=== PATIENT | female | born 1960 | race Caucasian/White ===

== ENCOUNTER 2023-02-08 06:28 | Day surgery (SDC) | payer OTHER ==
[~2023-02-08] VITALS: Ht 147.3 cm; Wt 75.7 kg
[~2023-02-08 06:28] MED LIST: ATOR1TAB19 PO; LOSA25TA13 PO; PROPARACAINE 0.5% OPHTH SOL 15ML OS ONE
[2023-02-08] MEDS ORDERED: MIDAZOLAM INJ 2MG/2ML VIAL As Ordered ONE (06:55)
[2023-02-08] MEDS ORDERED: fentaNYL 100 MCG/2 ML INJECTION As Ordered ONE (06:55)
[2023-02-08] MEDS ORDERED: CEFUROXIME 1MG/0.1ML INTRACAMERAL INJ As Ordered ONE (07:01)
[2023-02-08] MEDS ORDERED: LIDOCAINE 1% SDV 5ML VIAL As Ordered ONE (07:01)
[2023-02-08] MEDS ORDERED: BSS IRR 500ML/OMIDRIA 4ML IRR BAG (OR ONLY) As Ordered ONE (07:01)
[2023-02-08] MEDS ORDERED: TRYPAN BLUE 0.06 % 2.25 ML OPHTH SYR (VISIONBLUE) As Ordered ONE (07:09)
[2023-02-08] MEDS ORDERED: TOBRADEX OPHTH OINT 3.5 GM As Ordered ONE (07:10)
[2023-02-08] MEDS: OFLOXACIN 0.3 % (OCUFLOX) OPTH SOL 5ML OS SCH ×2 (07:18→07:19)
[2023-02-08] MEDS: TROPICAMIDE 1% OPHTH SOLN 15ML OS SCH ×2 (07:18→07:19)
[2023-02-08] MEDS: CYCLOPENTOLATE 1% OPHTH SOLN 2ML BTL OS SCH ×2 (07:18→07:19)
[2023-02-08] MEDS: PHENYLEPHRINE 2.5% OPHTH SOL 2ML OS SCH ×2 (07:18→07:19)
[2023-02-08 08:40] VITALS: BP 140/77; TEMP 97.1; O2SAT 97
== END 2023-02-08 08:59 | disposition home or self-care (01) ==
LOC: M SDC 06:28
PROVIDERS: ATTEND Ophthalmology
DX: H25.12 Age-related nuclear cataract, left eye (principal); I10 Essential (primary) hypertension; E78.5 Hyperlipidemia, unspecified; Z79.899 Other long term (current) drug therapy; Z87.891 Personal history of nicotine dependence; Z88.0 Allergy status to penicillin; Z88.2 Allergy status to sulfonamides
CPT/HCPCS: 66984; J1097; J2250; J3010; V2632

== ENCOUNTER → 2023-04-20 | Outpatient (CLI) | payer OTHER ==
[~2023-04-20] MED LIST changes: +PROHANCE 279.3MG/ML 15ML VIAL As Ordered ONE; -PROPARACAINE 0.5% OPHTH SOL 15ML OS ONE
== END ==
LOC: M RAD 15:28
PROVIDERS: ATTEND Ophthalmology
DX: H53.9 Unspecified visual disturbance (principal); I67.82 Cerebral ischemia
CPT/HCPCS: 70553; A9576

== ENCOUNTER 2024-11-26 09:32 | Day surgery (SDC) | payer MEDICARE ==
[~2024-11-26] VITALS: Ht 144.8 cm; Wt 73.3 kg
[~2024-11-26 09:32] MED LIST changes: +ASPI81CH33 PO; +LR 1,000 ML IV SCH; -PROHANCE 279.3MG/ML 15ML VIAL As Ordered ONE
[2024-11-26] MEDS ORDERED: MIDAZOLAM INJ 2MG/2ML VIAL As Ordered ONE (09:56)
[2024-11-26] MEDS ORDERED: fentaNYL 100 MCG/2 ML INJECTION As Ordered ONE (09:56)
[2024-11-26] MEDS ORDERED: hydrALAZINE 20MG/ML 1ML VIAL As Ordered ONE (09:58)
[2024-11-26] MEDS: PHENYLEPHRINE 2.5% OPHTH SOL 2ML OD SCH (10:39)
[2024-11-26] MEDS: TETRACAINE 0.5% OPHTH SOLN 4ML OD SCH (10:39)
[2024-11-26] MEDS: CYCLOPENTOLATE 1% OPHTH SOLN 2ML BTL OD SCH (10:39)
[2024-11-26] MEDS: FLURBIPROFEN 0.03% OPHTH SOLN 2.5 ML OD SCH (10:39)
[2024-11-26] MEDS: CEFUROXIME 1MG/0.1ML INTRACAMERAL INJ As Ordered ONE (12:01)
[2024-11-26] MEDS: LIDOCAINE 1% SDV 5ML VIAL As Ordered ONE (12:01)
[2024-11-26 12:22] VITALS: BP 166/83; TEMP 97.4; O2SAT 98
== END 2024-11-26 12:40 | disposition home or self-care (01) ==
LOC: M SDC 09:32
PROVIDERS: ATTEND Ophthalmology
DX: H25.11 Age-related nuclear cataract, right eye (principal); I10 Essential (primary) hypertension; E78.00 Pure hypercholesterolemia, unspecified; Z79.82 Long term (current) use of aspirin; Z79.899 Other long term (current) drug therapy; Z88.0 Allergy status to penicillin; Z88.2 Allergy status to sulfonamides; Z88.8 Allergy status to other drugs, medicaments and biological substances
CPT/HCPCS: 66984; J0360; J0697; J2250; J3010; V2632